=== PATIENT | female | born 1965 | race Caucasian/White ===

== ENCOUNTER 2019-01-23 11:15 | Outpatient (CLI) | payer OTHER ==
--- NOTE | 2019-01-23 12:03 | MMO ---
Bilateral MAMMO Bilat Screen [facility]. CLINICAL HISTORY: Patient is 53 years old and is seen for screening. The patient has no family history of breast cancer. The patient has no personal history of cancer. VIEWS: The views performed were: bilateral craniocaudal with tomosynthesis and bilateral mediolateral oblique with tomosynthesis. FILMS COMPARED: The present examination has been compared to prior imaging studies performed at [facility] on 01/23/2013 and 01/11/2017. MAMMOGRAM FINDINGS: There are scattered fibroglandular densities. There are no suspicious masses, suspicious calcifications, or new areas of architectural distortion. IMPRESSION: THERE IS NO MAMMOGRAPHIC EVIDENCE OF MALIGNANCY. A ROUTINE FOLLOW-UP MAMMOGRAM IN 1 YEAR IS RECOMMENDED. THE RESULTS OF THIS EXAM WERE SENT TO THE PATIENT. ACR BI-RADS Category 1 - Negative MAMMOGRAPHY NOTE: 1. A negative mammogram report should not delay a biopsy if a dominant of clinically suspicious mass is present. 2. Approximately 10% to 15% of breast cancers are not detected by mammography. 3. Adenosis and dense breasts may obscure an underlying neoplasm. Reported by: JEREMÍAS VUONG MD Electonically Signed: [id number]
== END 2019-01-23 11:16 | disposition home or self-care (01) ==
LOC: BICMAMMO 11:15
PROVIDERS: ATTEND Family Medicine
DX: Z12.31 Encounter for screening mammogram for malignant neoplasm of breast (principal)
CPT/HCPCS: 77063; 77067

== ENCOUNTER 2019-10-17 15:14 | Outpatient (CLI) | payer OTHER ==
--- NOTE | 2019-10-17 15:51 | RAD ---
TWO VIEWS OF THE CHEST: 10/17/19 COMPARISON: None. HISTORY: Cough and chest pain. FINDINGS: Two views of the chest show normal sized cardiomediastinal silhouette. There is no evidence of consol idation, mass, or pleural effusion. The bones are unremarkable. IMPRESSION: No evidence of acute cardiopulmonary disease. POS: [facility]
== END 2019-10-17 15:15 | disposition home or self-care (01) ==
LOC: RAD 15:14
PROVIDERS: ATTEND Family Medicine
DX: R05 Cough (principal)
CPT/HCPCS: 71046

== ENCOUNTER 2020-09-26 13:04 | Outpatient (CLI) | payer OTHER | END 2020-09-26 13:05 | disposition home or self-care (01) | LOC: BICRAD 13:04 | PROVIDERS: ATTEND Internal Medicine Pulmonary Disease | DX: R06.00 Dyspnea, unspecified (principal) | CPT/HCPCS: 71046 ==

== ENCOUNTER 2022-11-01 19:06 | Inpatient (IN) | payer OTHER ==
[2022-11-01 20:17] LABS: #Eosinphils 0.1 thou/uL (0.0-0.7); #Lymphocytes 2.5 thou/uL (1.20-3.40); #Monocytes 0.6 thou/uL (0.11-0.59); #Neutrophils 4.9 thou/uL (1.40-6.50); %Basophils 0.5 % (0.0-1.0); %Eosinophils 1.8 % (0.0-10.0); %Lymphocytes 30.6 % (21.0-51.0); %Monocytes 7.4 % (0.0-10.0); %Neutrophils 59.8 % (42.0-75.0); Hemoglobin 14.6 g/dL (12.0-16.0); Mean Corpuscular HGB CONC 33.9 g/dL (32.0-36.0); Mean Corpuscular Hemoglobin 30.8 pg (27.0-31.0); Mean Corpuscular Volume 90.8 fl (78.0-98.0); Mean Platelet Volume 8.9 fL (7.4-10.4); Platelet Count 210 10x3/uL (130-400); RBC Distribution Width 12.5 % (11.5-14.5); Red Blood Cell (RBC) Count 4.74 mill/uL (4.20-5.40); White Blood Cell (WBC) Count 8.2 10x3/uL (4.8-10.8)
[2022-11-01 20:37] LABS: ALT (SGPT) 30 U/L (8-55); AST (SGOT) 28 U/L (5-34); Albumin 4.8 g/dL (3.5-5.0); Alkaline Phosphatase 94 U/L (40-110); Anion Gap 17 mmol/L (10-20); BUN (Urea Nitrogen) 15 mg/dL (9.8-20.1); Bilirubin, Total 0.4 mg/dL (0.2-1.2); Calc. Creatinine Clearance 0 mL/min (70-130); Calcium 9.5 mg/dL (7.8-10.44); Carbon Dioxide 21 mmol/L (22-29); Chloride 107 mmol/L (98-107); Estimated GFR 89; Globulin 2.7 g/dL (2.4-3.5); Glucose 105 mg/dL (70-105); Potassium 4.2 mmol/L (3.5-5.1); Protein, Total 7.5 g/dL (6.0-8.3); Sodium 141 mmol/L (136-145)
[2022-11-01] MEDS ORDERED: Aspirin Chewable 81 MG TAB ONE (20:44)
[2022-11-01 20:58] LABS: CKMB 1.3 ng/mL (0-6.6)
[2022-11-01 23:43] LABS: Troponin I 3.069 ng/mL (< 0.028)
[2022-11-01] MEDS ORDERED: Nitroglycerin 0.4 MG TAB 1 EACH ONE (23:52)
[2022-11-01] MEDS: Nitroglycerin 0.4 MG TAB (25 Tab Bottle) SL PRN (23:58)
[2022-11-02] MEDS ORDERED: Heparin 25,000 units/D5W 500 ML IVPB SCH (00:15)
[2022-11-02] MEDS ORDERED: Heparin 10,000 UNITS/ 10 ML VIAL SLOW IVP SCH (00:15)
[2022-11-02] MEDS ORDERED: Morphine 2 MG/ML VIAL SLOW IVP PRN (00:37)
[2022-11-02] MEDS: Nitroglycerin 0.4 MG TAB (25 Tab Bottle) SL PRN ×2 (00:46→01:03)
[2022-11-02 01:12] LABS: Platelet Count 217 10x3/uL (130-400)
[2022-11-02 01:18] LABS: INR-International Normal Ratio 0.9; PTT 33.7 sec (22.9-36.1); Prothrombin Time 12.8 sec (12.0-14.7)
[2022-11-02] MEDS: Lactated Ringer's 1,000 ML IV SCH ×3 (01:30→17:18)
[2022-11-02] MEDS ORDERED: Nitroglycerin 50 MG/250 ML BOT 250 ML IVPB SCH (01:30)
[2022-11-02 02:01] LABS: Troponin I 5.072 ng/mL (< 0.028)
[2022-11-02 02:34] VITALS: BMI 32.5
[2022-11-02] MEDS ORDERED: Heparin 10,000 UNITS/ 10 ML VIAL ONE ×2 (03:06→10:36)
[2022-11-02] MEDS ORDERED: Heparin 25,000 units/D5W 500 ML ONE (03:06)
[2022-11-02] MEDS ORDERED: Nitroglycerin 50 MG/250 ML BOT 250 ML ONE (03:06)
[2022-11-02 05:59] LABS: #Eosinphils 0.1 thou/uL (0.0-0.7); #Lymphocytes 2.6 thou/uL (1.20-3.40); #Monocytes 0.5 thou/uL (0.11-0.59); #Neutrophils 5.5 thou/uL (1.40-6.50); %Basophils 0.5 % (0.0-1.0); %Eosinophils 1.7 % (0.0-10.0); %Lymphocytes 29.6 % (21.0-51.0); %Monocytes 5.4 % (0.0-10.0); %Neutrophils 62.7 % (42.0-75.0); Hemoglobin 14.5 g/dL (12.0-16.0); Mean Corpuscular HGB CONC 32.8 g/dL (32.0-36.0); Mean Corpuscular Hemoglobin 29.7 pg (27.0-31.0); Mean Corpuscular Volume 90.6 fl (78.0-98.0); Mean Platelet Volume 8.5 fL (7.4-10.4); Platelet Count 225 10x3/uL (130-400); RBC Distribution Width 12.5 % (11.5-14.5); Red Blood Cell (RBC) Count 4.87 mill/uL (4.20-5.40); White Blood Cell (WBC) Count 8.8 10x3/uL (4.8-10.8)
[2022-11-02 06:06] LABS: Hemoglobin A1c 5.3 % (4.0-6.0)
[2022-11-02 06:22] LABS: Anion Gap 13 mmol/L (10-20); BUN (Urea Nitrogen) 11 mg/dL (9.8-20.1); Calc. Creatinine Clearance 113 mL/min (70-130); Calcium 9.9 mg/dL (7.8-10.44); Carbon Dioxide 24 mmol/L (22-29); Cardiac Risk 2.9 (Less than 4.5); Chloride 106 mmol/L (98-107); Cholesterol 155 mg/dl (< 200 Desired); Estimated GFR 93; Glucose 120 mg/dL (70-105); HDL Cholesterol 53 mg/dL (>60 Neg Risk); LDL Cholesterol, Calculated 91 mg/dL; Potassium 4.2 mmol/L (3.5-5.1); Sodium 139 mmol/L (136-145); Triglycerides 55 mg/dL (Less than 150)
[2022-11-02 06:31] LABS: PTT Greater than 250.0 sec (22.9-36.1)
[2022-11-02 07:12] LABS: Free T4 (Free Thyroxine) 1.15 ng/dL (0.70-1.48)
[2022-11-02 07:13] LABS: Thyroid Stimulating Hormone 0.4729 uIU/mL (0.35-4.94)
[2022-11-02] MEDS ORDERED: Ondansetron PF 4 MG/2 ML Vial IVP PRN (08:10)
[2022-11-02] MEDS: Rosuvastatin 20 MG TAB PO SCH (08:11)
[2022-11-02] MEDS ORDERED: Iopamidol 370 76% 100 ML VIAL ONE (08:31)
[2022-11-02] MEDS ORDERED: Morphine 4 MG/ML VIAL SLOW IVP SCH (09:00)
[2022-11-02] MEDS: Metoprolol Tartrate 25 MG TAB PO SCH ×2 (09:48→20:45)
[2022-11-02] MEDS: Aspirin 81 mg Enteric Coated Tablet PO SCH (09:48)
[2022-11-02] MEDS: Levothyroxine Sodium 100 MCG TAB PO SCH (10:10)
[2022-11-02] MEDS ORDERED: Lidocaine 1% (PF) 30 ML VIAL ONE (10:36)
[2022-11-02] MEDS ORDERED: Midazolam HCl 2 mg/2 ml Vial ONE (11:43)
[2022-11-02] MEDS ORDERED: fentaNYL 50 mcg/mL 1 mL Vial ONE (11:43)
[2022-11-02] MEDS ORDERED: Morphine 4 MG/ML VIAL ONE (12:07)
[2022-11-02] MEDS: Acetaminophen 325 MG TAB PO PRN (13:23)
[2022-11-02] MEDS ORDERED: Metoclopramide HCl 10 MG/2 ML VIAL IVP PRN (15:06)
[2022-11-02] MEDS ORDERED: diphenhydrAMINE 25 MG CAP PO PRN (15:06)
[2022-11-02] MEDS ORDERED: Metoclopramide HCl 10 MG/2 ML VIAL IVP SCH (15:15)
[2022-11-02] MEDS ORDERED: diphenhydrAMINE 25 MG CAP PO SCH (15:15)
[2022-11-02] MEDS ORDERED: TICAGRELOR 90 MG TABLET PO SCH (15:45)
[2022-11-03] MEDS: Lactated Ringer's 1,000 ML IV SCH ×2 (00:01→08:52)
[2022-11-03] MEDS ORDERED: Fioricet 325/50/40 mg Tablet PO SCH (04:45)
[2022-11-03 05:12] LABS: #Eosinphils 0.1 thou/uL (0.0-0.7); #Lymphocytes 1.6 thou/uL (1.20-3.40); #Monocytes 0.5 thou/uL (0.11-0.59); #Neutrophils 5.4 thou/uL (1.40-6.50); %Eosinophils 1.1 % (0.0-10.0); %Lymphocytes 21.6 % (21.0-51.0); %Monocytes 6.2 % (0.0-10.0); %Neutrophils 71.1 % (42.0-75.0); Hemoglobin 13.4 g/dL (12.0-16.0); Mean Corpuscular HGB CONC 34.2 g/dL (32.0-36.0); Mean Corpuscular Hemoglobin 31.4 pg (27.0-31.0); Mean Platelet Volume 8.6 fL (7.4-10.4); Platelet Count 217 10x3/uL (130-400); RBC Distribution Width 12.4 % (11.5-14.5); Red Blood Cell (RBC) Count 4.25 mill/uL (4.20-5.40); White Blood Cell (WBC) Count 7.6 10x3/uL (4.8-10.8)
[2022-11-03 05:17] LABS: Anion Gap 10 mmol/L (10-20); BUN (Urea Nitrogen) 9 mg/dL (9.8-20.1); Calc. Creatinine Clearance 121 mL/min (70-130); Calcium 9.3 mg/dL (7.8-10.44); Carbon Dioxide 27 mmol/L (22-29); Chloride 107 mmol/L (98-107); Estimated GFR 101; Glucose 99 mg/dL (70-105); Potassium 3.8 mmol/L (3.5-5.1); Sodium 140 mmol/L (136-145)
[2022-11-03] MEDS: Levothyroxine Sodium 100 MCG TAB PO SCH (05:31)
[2022-11-03] MEDS: Aspirin 81 mg Enteric Coated Tablet PO SCH (08:48)
[2022-11-03] MEDS: Metoprolol Tartrate 25 MG TAB PO SCH ×2 (08:48→21:38)
[2022-11-03] MEDS: Rosuvastatin 20 MG TAB PO SCH (08:48)
[2022-11-03] MEDS: TICAGRELOR 90 MG TABLET PO SCH ×2 (08:49→21:38)
[2022-11-03] MEDS: Acetaminophen 325 MG TAB PO PRN (14:08)
[2022-11-04 01:11] LABS: Hemoglobin 13.5 g/dL (12.0-16.0); Platelet Count 192 10x3/uL (130-400)
[2022-11-04 05:17] LABS: #Eosinphils 0.2 thou/uL (0.0-0.7); #Monocytes 0.5 thou/uL (0.11-0.59); %Basophils 0.4 % (0.0-1.0); %Eosinophils 2.4 % (0.0-10.0); %Lymphocytes 29.9 % (21.0-51.0); %Monocytes 6.8 % (0.0-10.0); %Neutrophils 60.5 % (42.0-75.0); Hemoglobin 13.5 g/dL (12.0-16.0); Mean Corpuscular HGB CONC 34.3 g/dL (32.0-36.0); Mean Corpuscular Hemoglobin 30.9 pg (27.0-31.0); Mean Corpuscular Volume 90.1 fl (78.0-98.0); Mean Platelet Volume 8.4 fL (7.4-10.4); Platelet Count 190 10x3/uL (130-400); RBC Distribution Width 12.4 % (11.5-14.5); Red Blood Cell (RBC) Count 4.36 mill/uL (4.20-5.40); White Blood Cell (WBC) Count 6.6 10x3/uL (4.8-10.8)
[2022-11-04 05:37] LABS: Anion Gap 12 mmol/L (10-20); BUN (Urea Nitrogen) 15 mg/dL (9.8-20.1); Calc. Creatinine Clearance 111 mL/min (70-130); Calcium 9.2 mg/dL (7.8-10.44); Carbon Dioxide 26 mmol/L (22-29); Chloride 105 mmol/L (98-107); Estimated GFR 91; Glucose 97 mg/dL (70-105); Sodium 139 mmol/L (136-145)
[2022-11-04] MEDS: Levothyroxine Sodium 100 MCG TAB PO SCH (05:54)
[2022-11-04] MEDS: Aspirin 81 mg Enteric Coated Tablet PO SCH (08:53)
[2022-11-04] MEDS: Rosuvastatin 20 MG TAB PO SCH (08:53)
[2022-11-04] MEDS: TICAGRELOR 90 MG TABLET PO SCH ×2 (08:55→22:09)
[2022-11-04] MEDS ORDERED: Amlodipine 5 MG TAB PO SCH ×2 (09:00→21:00)
[2022-11-05] MEDS: Levothyroxine Sodium 100 MCG TAB PO SCH (05:58)
[2022-11-05 06:47] LABS: #Eosinphils 0.2 thou/uL (0.0-0.7); #Monocytes 0.6 thou/uL (0.11-0.59); %Basophils 0.5 % (0.0-1.0); %Lymphocytes 25.2 % (21.0-51.0); %Monocytes 7.5 % (0.0-10.0); %Neutrophils 63.8 % (42.0-75.0); Hemoglobin 13.7 g/dL (12.0-16.0); Mean Corpuscular HGB CONC 33.4 g/dL (32.0-36.0); Mean Corpuscular Hemoglobin 30.6 pg (27.0-31.0); Mean Corpuscular Volume 91.6 fl (78.0-98.0); Mean Platelet Volume 8.8 fL (7.4-10.4); Platelet Count 223 10x3/uL (130-400); RBC Distribution Width 12.2 % (11.5-14.5); Red Blood Cell (RBC) Count 4.47 mill/uL (4.20-5.40); White Blood Cell (WBC) Count 7.8 10x3/uL (4.8-10.8)
[2022-11-05 06:56] LABS: Anion Gap 11 mmol/L (10-20); BUN (Urea Nitrogen) 16 mg/dL (9.8-20.1); Calc. Creatinine Clearance 110 mL/min (70-130); Calcium 9.2 mg/dL (7.8-10.44); Carbon Dioxide 28 mmol/L (22-29); Chloride 104 mmol/L (98-107); Estimated GFR 90; Glucose 95 mg/dL (70-105); Potassium 4.1 mmol/L (3.5-5.1); Sodium 139 mmol/L (136-145)
[2022-11-05 07:55] VITALS: BP 116/73; TEMP 97.6
[2022-11-05] MEDS: TICAGRELOR 90 MG TABLET PO SCH (09:53)
[2022-11-05] MEDS: Aspirin 81 mg Enteric Coated Tablet PO SCH (09:53)
[2022-11-05] MEDS: Rosuvastatin 20 MG TAB PO SCH (09:53)
[2022-11-05] MEDS: UBROGEPANT 100 MG PO SCH ×2 (18:15→18:16)
== END 2022-11-05 12:00 | disposition home or self-care (01) | DRG 282 ==
LOC: ERS 19:06 → ERHOLD 21:04 → OBSVTOIN 11-02 07:10 → CCU 11-02 07:47 → 2NO 11-03 13:42
PROVIDERS: ADMIT Student in an Organized Health Care Education/Training Program; ATTEND Student in an Organized Health Care Education/Training Program
PROC: 4A023N7 Measurement of Cardiac Sampling and Pressure, Left Heart, Percutaneous Approach (ICD-10-PCS; principal; 2022-11-02)
PROC: B2151ZZ Fluoroscopy of Left Heart using Low Osmolar Contrast (ICD-10-PCS; 2022-11-02)
PROC: B2111ZZ Fluoroscopy of Multiple Coronary Arteries using Low Osmolar Contrast (ICD-10-PCS; 2022-11-02)
DX: I21.4 Non-ST elevation (NSTEMI) myocardial infarction (principal); E03.9 Hypothyroidism, unspecified; E78.5 Hyperlipidemia, unspecified; G43.909 Migraine, unspecified, not intractable, without status migrainosus; I25.10 Atherosclerotic heart disease of native coronary artery without angina pectoris; I08.1 Rheumatic disorders of both mitral and tricuspid valves; I95.89 Other hypotension; E66.9 Obesity, unspecified; Z68.32 Body mass index [BMI] 32.0-32.9, adult; Z98.890 Other specified postprocedural states; Z87.442 Personal history of urinary calculi; Z95.5 Presence of coronary angioplasty implant and graft; Z95.1 Presence of aortocoronary bypass graft; Z82.49 Family history of ischemic heart disease and other diseases of the circulatory system
CPT/HCPCS: 36415; 71045; 80048; 80053; 80061; 82553; 83036; 84439; 84443; 84484; 85025; 85610; 85730; 93005; 93306; 93458; 94760; 99152; C1769; J1644; J1650; J2001; J2250; J2270; J2405; J2765; J3010; J7120; Q9967